=== PATIENT | male | born 1945 | race Caucasian/White ===

== ENCOUNTER 2018-02-19 02:31 | Inpatient (IN) | payer MEDICARE, BC ==
[~2018-02-19] VITALS: Ht 188 cm; Wt 78.9 kg
--- NOTE | 2018-02-19 02:51 | NUR ---
DR. BARDALES AT BEDSIDE FOR MSE.
[2018-02-19 02:55] LABS: BASOPHILS % (AUTO) 0.4 % (0.0-2.0); EOSINOPHILS # (AUTO) 0.4 K/uL (0.0-0.7); EOSINOPHILS % (AUTO) 4.1 % (0.0-7.0); HEMATOCRIT 46.5 % (36.7-47.1); HEMOGLOBIN 16.3 g/dL (12.5-16.3); LYMPHOCYTES # (AUTO) 2.5 K/uL (20.0-40.0); LYMPHOCYTES % (AUTO) 26.9 % (20.5-51.5); MEAN CORPUSCULAR HEMOGLOBIN 32.9 uug (23.8-33.4); MEAN CORPUSCULAR HGB CONC 35 g/dL (32.5-36.3); MEAN CORPUSCULAR VOLUME 93.8 fL (73.0-96.2); MONOCYTES % (AUTO) 10.8 % (0.0-11.0); NEUTROPHILS # (AUTO) 5.4 K/uL (1.8-8.9); NEUTROPHILS % (AUTO) 57.8 % (38.5-71.5); PLATELET COUNT (AUTO) 146 K/uL (152-348); RED BLOOD CELL COUNT(AUTO) 4.95 MIL/uL (4.06-5.63); WHITE BLOOD COUNT (AUTO) 9.3 K/uL (3.6-10.2)
[2018-02-19 03:01] LABS: ALANINE AMINOTRANSFERASE 23 U/L (16-63); ALKALINE PHOSPHATASE 55 U/L (50-136); ASPARTATE AMINOTRANSFERASE 17 U/L (15-37); BILIRUBIN,DIRECT 0.2 mg/dL (0.0-0.2); BILIRUBIN,TOTAL 0.8 mg/dL (0.2-1.0); CARBON DIOXIDE 24 mmol/L (21-32); CHLORIDE 103 mmol/L (98-107); GLUCOSE 109 mg/dL (74-106); POTASSIUM 3.3 mmol/L (3.5-5.1); UREA NITROGEN, BLOOD 12 mg/dL (7-18)
[2018-02-19] MEDS ORDERED: KETOROLAC TROMETHAMINE 15 MG INJ ONE (03:10)
[2018-02-19] MEDS ORDERED: KETOROLAC TROMETHAMINE 15 MG INJ IVP ONE (03:15)
[2018-02-19] MEDS ORDERED: NITROGLYCERIN OINT 1 GM PACKET TP ONE ×2 (03:26→03:30)
[2018-02-19] MEDS ORDERED: ASPIRIN 81 MG TAB.CHEW ONE (03:26)
[2018-02-19] MEDS ORDERED: ASPIRIN 81 MG TAB.CHEW PO ONE (03:30)
--- NOTE | 2018-02-19 03:43 | NUR ---
EPIC PAGED, AWAITING CALL BACK FROM DR. NY.
[2018-02-19] MEDS ORDERED: METOPROLOL SUCCINATE XL 25 MG TAB.SR.24H PO ONE ×2 (03:45→03:57)
[2018-02-19] MEDS ORDERED: FINA5TAB11 PO (03:48)
--- NOTE | 2018-02-19 03:56 | NUR ---
Pt. admitted to [facility] , under care of Dr. NY Belongs List completed.
[2018-02-19] MEDS ORDERED: NITROGLYCERIN 0.4 MG/TAB BOTTLE SL ONE ×2 (04:00)
--- NOTE | 2018-02-19 04:00 | NUR ---
VERBAL ORDER RECEIVED FROM DR. BARDALES FOR KAYLANUR 20MEQ PO FOR POTASSIUM 3.3.
[2018-02-19] MEDS ORDERED: IV NS 1000 ML 1,000 ML IV PRN (04:13)
[2018-02-19] MEDS ORDERED: POTASSIUM CHLORIDE 20 MEQ TAB.PRT.SR ONE (04:13)
[2018-02-19] MEDS ORDERED: HYDROCODONE/APAP 5-325MG TABLET PO PRN (04:15)
[2018-02-19] MEDS ORDERED: ACETAMINOPHEN 325 MG TABLET PO PRN (04:15)
[2018-02-19] MEDS ORDERED: MORPHINE SULFATE 4 MG/1 ML DISP.SYRIN IV PRN (04:15)
[2018-02-19] MEDS ORDERED: ONDANSETRON 4 MG/2 ML VIAL IV PRN (04:15)
[2018-02-19] MEDS ORDERED: MAGNESIUM HYDROXIDE 30 ML LIQUID UDC PO PRN (04:15)
[2018-02-19] MEDS ORDERED: Z GUARD REMEDY PASTE 57 GM TUBE TOP PRN (04:15)
[2018-02-19 04:46] VITALS: BP 108/60
--- NOTE | 2018-02-19 07:30 | NUR ---
CRITICAL TROPONIN RELAYED TO DR FIGUEROA; AWAITING CALL BACK FOR ORDERS.
--- NOTE | 2018-02-19 07:30 | NUR ---
RECEIVED REPORT FROM [employer] COORDINATOR NURSE, PATIENT IN BED, NO DISTRESS NOTED AT THIS TIME, BED IN LOW POSITION, SIDE RAILS UP X2. BED ALARM ON.
[2018-02-19] MEDS ORDERED: FINASTERIDE 5 MG TABLET PO SCH (09:00)
[2018-02-19] MEDS ORDERED: ASPIRIN 81 MG TAB.CHEW PO SCH (09:00)
[2018-02-19] MEDS ORDERED: ENOXAPARIN SODIUM 80 MG/0.8 ML DISP.SYRIN SQ SCH (11:03)
[2018-02-19] MEDS ORDERED: HEPARIN/D5W DRIP 500 ML IV PRN (11:15)
[2018-02-19] MEDS ORDERED: METOPROLOL TARTRATE 25 MG TABLET PO SCH ×2 (11:15→21:00)
[2018-02-19 11:19] LABS: THYROID STIMULATING HORMONE 0.883 mIU/mL (0.358-3.740)
--- NOTE | 2018-02-19 11:24 | NUR ---
NOTIFIED DR. OLIVER THAT CRITICAL VALUES RECEIVED FOR TROPONIN. ADDITIONALLY CALLED DR. MENG AND RECEIVED ORDERS FOR HEPARIN, METOPROLOL, AND LIPITOR.
[2018-02-19 11:45] VITALS: BP 106/61
[2018-02-19] MEDS: ATORVASTATIN 40 MG TABLET PO SCH ×2 (12:12→20:09)
[2018-02-19] MEDS ORDERED: HEPARIN SODIUM,PORCINE 5,000 UNITS/ML VIAL IV PRN (12:15)
[2018-02-19] MEDS ORDERED: HEPARIN SODIUM,PORCINE 5,000 UNITS/ML VIAL IV ONE (12:30)
[2018-02-19 16:16] VITALS: BP 100/43
[2018-02-19] MEDS ORDERED: NITROGLYCERIN 0.4 MG/TAB BOTTLE SL PRN (17:00)
[2018-02-19] MEDS ORDERED: HEPA50007 IV (18:20)
[2018-02-19] MEDS ORDERED: Nitroglycerin Sl SL (18:20)
[2018-02-19] MEDS ORDERED: ACET325T53 PO (18:20)
[2018-02-19] MEDS ORDERED: ONDA4VIA23 IV (18:20)
[2018-02-19] MEDS ORDERED: ASPI81TA31 PO (18:20)
[2018-02-19] MEDS ORDERED: ATOR40TA PO (18:20)
[2018-02-19] MEDS ORDERED: HYDR-3326 PO (18:20)
[2018-02-19] MEDS ORDERED: METO25TA6 PO (18:20)
[2018-02-19] MEDS ORDERED: PANT40TA2 PO (18:30)
--- NOTE | 2018-02-19 18:45 | NUR ---
PATIENT IS CURRENTLY IN BED, NO DISTRESS NOTED AT THIS TIME, [facility] CALLED TO ACCEPT PATIENT AND AMBULANCE BEING CALLED FOR 2030 CAR AUDIO INSTALLER TIME, COPY OF IMAGING PLACED IN TRANSPORT PAPERWORK.. PATIENT IS TO BE DISCHARGED WITH HEPARIN DRIP.
[2018-02-19 20:00] VITALS: BP 106/59
[2018-02-19 20:09] VITALS: BP 106/59
--- NOTE | 2018-02-19 20:32 | NUR ---
DISCHARGE PATIENT TO [facility]. REPORT ENDORSED TO Clare OSPINA/Caty STABLE NO CHEST PAIN AT PRESENT
--- NOTE | 2018-02-19 20:47 | NUR ---
PATIENT ANXIOUS AND NERVOUS WHEN BEING TRANSFERRED TO [facility]. C/O CHEST PAIN 8/10, MORPHINE 2MG PRN GIVEN ORDERED WITH EFFECT. V/S STABLE ON DISCHARGE BP 134/74, LA 63 0N MONITOR, RR 18, ON O2 AT 2LPM SAT 98%.
== END 2018-02-19 20:52 | disposition short-term general hospital (02) | DRG 281 ==
LOC: ER 02:34 → TELE-TD 04:00 → TELE 04:54
PROVIDERS: ADMIT Internal Medicine; ATTEND Internal Medicine
DX: I21.4 Non-ST elevation (NSTEMI) myocardial infarction (principal); K86.2 Cyst of pancreas; E87.6 Hypokalemia; N40.0 Benign prostatic hyperplasia without lower urinary tract symptoms; E78.5 Hyperlipidemia, unspecified; I25.10 Atherosclerotic heart disease of native coronary artery without angina pectoris; K21.0 Gastro-esophageal reflux disease with esophagitis; K44.9 Diaphragmatic hernia without obstruction or gangrene; Z82.49 Family history of ischemic heart disease and other diseases of the circulatory system
CPT/HCPCS: 36415; 70030-TC; 71045; 84443; 85025; 85730; 93005; 93307; A4663; J1644; J1885; J2270; J7030